=== PATIENT | female | born 1950 | race African-American/Black ===

== ENCOUNTER 2016-10-23 16:33 | Emergency (ER) | payer MEDICARE, OTHER ==
[~2016-10-23] VITALS: Ht 154.9 cm; Wt 63.5 kg
[~2016-10-23 16:33] MED LIST: ALBUTEROL0.09 MG/A1 IH; ATENOLOL100 M1 PO; CLONIDINE0.1 M1; COZAAR100 MG; HCTZ; LOVASTATIN20 M1; LOVASTATIN40 MG PO; NORCO 10/325 MG1 TAB PO; POTASSIMIN PO; POTASSIUM1 PDS; TENORMIN50 MG
[2016-10-23 16:51] VITALS: BP 158/89
--- NOTE | 2016-10-23 16:58 | NUR ---
Patient ambulated to bed 6. RN evaluating patient at bedside.
--- NOTE | 2016-10-23 17:00 | NUR ---
66/F C/O LOWER BACK PAIN RADIATING DOWN BILATERAL LOWER LEGS X2 DAYS WORSE LAST NIGHT. PT STATES SHE WAS AT HER [employer]. PATIENT DESCRIBES PAIN A "SHOOTING" PAIN, RADIATING DOWN POSTERIOR BILATERAL LEGS, INTEMRITTENT, 01/30. PT ALSO C/O NUMBNESS TO BOTH FEET. DENIES N/V/D. DENIES FEVER OR CHILLS. AOX4, CLEAR SPEECH. AMBULATORY WITH STEADY GAIT. VSS. NO DISTRESS NOTED.
--- NOTE | 2016-10-23 17:02 | NUR ---
Patient being evaluated by Dr. Boucher at bedside.
[2016-10-23] MEDS ORDERED: traMADol 50 MG TAB PO ONE (17:10)
[2016-10-23 17:43] VITALS: BP 137/82
--- NOTE | 2016-10-23 17:43 | NUR ---
Patient discharged with v/s stable. Written and verbal after care instructions given and explained. Patient alert, oriented and verbalized understanding of instructions. Ambulatory with steady gait. All questions addressed prior to discharge. ID band removed. Patient advised to follow up with PMD. Rx of Tramadol Hydrochloride 50mg given. Patient educated on indication of medication including possible reaction and side effects. Opportunity to ask questions provided and answered.
== END 2016-10-23 17:43 | disposition home or self-care (01) ==
LOC: MED 16:33
DX: M54.16 Radiculopathy, lumbar region (principal); G89.29 Other chronic pain; J45.909 Unspecified asthma, uncomplicated; I10 Essential (primary) hypertension; Z88.6 Allergy status to analgesic agent; Z88.8 Allergy status to other drugs, medicaments and biological substances; Z86.73 Personal history of transient ischemic attack (TIA), and cerebral infarction without residual deficits

== ENCOUNTER 2019-07-20 09:51 | Emergency (ER) | payer MEDICARE, OTHER ==
[~2019-07-20] VITALS: Ht 154.9 cm; Wt 66.2 kg
[~2019-07-20 09:51] MED LIST changes: +ACET-787 PO; +ALBU0.0939 IH; -ALBUTEROL0.09 MG/A1 IH; +ATEN100T2 PO; -ATENOLOL100 M1 PO; +CLON0.1T79; -CLONIDINE0.1 M1; -COZAAR100 MG; -HCTZ; +LOSA100T1; +LOVA40TA4 PO; -LOVASTATIN20 M1; -LOVASTATIN40 MG PO; -NORCO 10/325 MG1 TAB PO; +ORE25; +POTA75TA2 PO; -POTASSIMIN PO; -POTASSIUM1 PDS; -TENORMIN50 MG
[2019-07-20 09:57] VITALS: BP 158/86
--- NOTE | 2019-07-20 10:00 | NUR ---
PT TO ER BED 12
--- NOTE | 2019-07-20 10:31 | NUR ---
C/O MOUTH PAIN X 3 DAYS RATING 9/10. LAST TOOTH REMOVED WAS ON 07/16/2019. NO DIFFICULTY WITH SWALLOWING. BED IN LOW POSITION, SIDE RAIL UP X 1. WILL CONTINUE TO MONITOR.
[2019-07-20 10:49] VITALS: BP 150/82
== END 2019-07-20 10:50 | disposition home or self-care (01) ==
LOC: MED 09:51
DX: K08.89 Other specified disorders of teeth and supporting structures (principal); G89.18 Other acute postprocedural pain; J45.909 Unspecified asthma, uncomplicated; I10 Essential (primary) hypertension; Z86.79 Personal history of other diseases of the circulatory system; Z79.899 Other long term (current) drug therapy; Z88.5 Allergy status to narcotic agent; Z88.1 Allergy status to other antibiotic agents
CPT/HCPCS: 99283